=== PATIENT | male | born 2000 | race Two or more races ===

== ENCOUNTER 2021-05-13 17:56 | Emergency (ER) | payer MEDICAID, OTHER ==
[~2021-05-13] VITALS: Ht 190.5 cm; Wt 99.8 kg
[2021-05-13 20:35] VITALS: BP 128/67
== END 2021-05-13 21:35 | disposition home or self-care (01) ==
LOC: ER 18:04
DX: S62.336A Displaced fracture of neck of fifth metacarpal bone, right hand, initial encounter for closed fracture (principal); S62.344A Nondisplaced fracture of base of fourth metacarpal bone, right hand, initial encounter for closed fracture; W22.01XA Walked into wall, initial encounter; Y93.89 Activity, other specified; Y92.89 Other specified places as the place of occurrence of the external cause; Y99.8 Other external cause status
CPT/HCPCS: 29125; 73110; 73130

== ENCOUNTER 2023-04-04 02:45 | Emergency (ER) | payer MEDICAID ==
[~2023-04-04] VITALS: Ht 170.2 cm; Wt 80.0 kg
[2023-04-04 06:15] LABS: Basophils # (auto) 0.1 10 ^3/uL (0-0.2); Eosinophils # (auto) 0 10 ^3/uL (0-0.8); Monocytes # (auto) 1.1 10 ^3/uL (0-1.3)
[2023-04-04 06:16] LABS: Partial Thromboplastin Time 27.3 SEC (24.5-34.5)
[2023-04-04 06:17] LABS: Basophils % (auto) 0.4 % (0.0-2.0); Hematocrit 51.3 % (41.0-53.0); Hemoglobin 17.2 g/dL (13.5-17.5); Lymphocytes # (auto) 1.4 10 ^3/uL (0.4-5.4); Mean Corpuscular Hemoglobin 30.3 pg (28.0-32.0); Mean Corpuscular Hgb Conc. 33.5 g/dL (32.0-36.0); Mean Corpuscular Volume 90.5 fL (80.0-100.0); Neutrophils % (auto) 90.6 % (37.0-80.0); Red Blood Cells 5.67 10^6/uL (4.5-5.90); Red Cell Distribution Width 12.9 % (11.8-14.3); White Blood Cell 27.5 10^3/uL (4.4-10.8)
[2023-04-04 06:22] LABS: Albumin 4.6 g/dL (3.4-5.0); BUN/Creatinine Ratio 12.6 (10.0-20.0); Calcium 8.7 mg/dL (8.5-10.1); Potassium 3.8 mmol/L (3.5-5.1)
[2023-04-04 06:24] LABS: Bilirubin, Total 0.4 mg/dL (0.2-1.0); Total Protein 8.8 g/dL (6.4-8.2)
[2023-04-04] MEDS ORDERED: cefTRIAXone SOD 1,000 MG VL IM ONE (06:30)
[2023-04-04] MEDS ORDERED: TETANUS-DIPTH-ACEL PERTUSSIS 0.5ML SYR Tdap IM ONE (06:30)
[2023-04-04 08:43] VITALS: BP 153/80
== END 2023-04-04 08:51 | disposition home or self-care (01) ==
LOC: ER 02:45
DX: S01.81XA Laceration without foreign body of other part of head, initial encounter (principal); S01.01XA Laceration without foreign body of scalp, initial encounter; J45.909 Unspecified asthma, uncomplicated; F10.129 Alcohol abuse with intoxication, unspecified; Z79.01 Long term (current) use of anticoagulants; W18.09XA Striking against other object with subsequent fall, initial encounter; Y93.89 Activity, other specified; Y92.89 Other specified places as the place of occurrence of the external cause; Y99.8 Other external cause status; Y90.8 Blood alcohol level of 240 mg/100 ml or more
CPT/HCPCS: 12002; 12011; 36415; 70450; 70486; 71045; 72125; 80053; 80320; 82010; 83930; 85025; 85610; 85730; 90471; 90715; 96372; 99285; J0696

== ENCOUNTER 2023-09-04 15:38 | Emergency (ER) | payer MEDICAID ==
[~2023-09-04] VITALS: Ht 188 cm; Wt 109.0 kg
[2023-09-04 16:00] VITALS: BP 154/111; PULSE 102; RESP 18; TEMP 98.3; O2SAT 97
[2023-09-04] MEDS ORDERED: IBUPROFEN 800 MG TAB PO ONE (17:00)
== END 2023-09-04 17:40 | disposition home or self-care (01) ==
LOC: ER 15:38
DX: S50.01XA Contusion of right elbow, initial encounter (principal); W22.8XXA Striking against or struck by other objects, initial encounter; Y93.89 Activity, other specified; Y92.89 Other specified places as the place of occurrence of the external cause; Y99.8 Other external cause status
CPT/HCPCS: 73080

== ENCOUNTER 2023-09-17 20:45 | Emergency (ER) | payer MEDICAID ==
[~2023-09-17] VITALS: Ht 188 cm; Wt 112.8 kg
[2023-09-17 22:17] LABS: Basophils # (auto) 0.1 10 ^3/uL (0-0.2); Basophils % (auto) 0.9 % (0.0-2.0); Eosinophils # (auto) 0.2 10 ^3/uL (0-0.8); Eosinophils % (auto) 1.6 % (0.0-7.0); Hematocrit 50.4 % (41.0-53.0); Hemoglobin 16.8 g/dL (13.5-17.5); Lymphocytes % (auto) 40.3 % (10.0-50.0); Mean Corpuscular Hemoglobin 29.9 pg (28.0-32.0); Mean Corpuscular Hgb Conc. 33.2 g/dL (32.0-36.0); Mean Corpuscular Volume 90.1 fL (80.0-100.0); Monocytes # (auto) 0.7 10 ^3/uL (0-1.3); Monocytes % (auto) 7.4 % (0.0-12.0); Neutrophils # (auto) 4.9 10 ^3/uL (1.6-8.6); Neutrophils % (auto) 49.8 % (37.0-80.0); Red Cell Distribution Width 13.1 % (11.8-14.3); White Blood Cell 9.9 10^3/uL (4.4-10.8)
[2023-09-17 22:31] LABS: Alanine Aminotransferase 26 U/L (7-40); Albumin 5.1 g/dL (3.2-4.8); Alkaline Phosphatase 73 U/L (46-116); Anion Gap 7 (5-15); Aspartate Aminotransferase 24 U/L (13-40); BUN/Creatinine Ratio 8.2 (10.0-20.0); Bilirubin, Total 0.8 mg/dL (0.2-1.0); Blood Urea Nitrogen 9 mg/dL (9-23); Calcium 10.4 mg/dL (8.7-10.4); Carbon Dioxide 27 mmol/L (20-30); Chloride 103 mmol/L (98-107); Glucose 89 mg/dL (74-106); Magnesium 2.2 mg/dL (1.6-2.6); Potassium 3.8 mmol/L (3.5-5.1); Sodium 137 mmol/L (136-145); Total Protein 7.9 g/dL (5.7-8.2)
[2023-09-17 22:36] LABS: Urine Bacteria NONE SEEN /hpf (None Seen); Urine Blood Negative /uL (Negative); Urine Clarity Clear (Clear); Urine Color Colorless (Yellow); Urine Protein, UAD Negative (Negative); Urine Specific Gravity 1.007 (1.001-1.035); Urine Urobilinogen Normal (Negative); Urine WBC <1 /hpf (0 - 3); Urine pH 5.5 (5.0-8.0)
[2023-09-17] MEDS ORDERED: KETOROLAC TROMETH 60MG/2ML VIAL IM ONE (23:15)
[2023-09-18] MEDS ORDERED: IBUP-1455 PO (01:02)
[2023-09-18 01:47] VITALS: BP 146/95; PULSE 61; RESP 17; TEMP 98.3; O2SAT 99
== END 2023-09-18 01:48 | disposition home or self-care (01) ==
LOC: ER 20:45
DX: R07.89 Other chest pain (principal); I10 Essential (primary) hypertension
CPT/HCPCS: 36415; 71045; 80053; 81001; 83735; 84484; 85025; 93005